=== PATIENT | male | born 1965 | race Caucasian/White ===

== ENCOUNTER → 2016-11-26 | Outpatient (CLI) | payer OTHER | LOC: RAD 10:20 | DX: M54.5 Low back pain (principal); M43.8X6 Other specified deforming dorsopathies, lumbar region; M47.816 Spondylosis without myelopathy or radiculopathy, lumbar region; M47.817 Spondylosis without myelopathy or radiculopathy, lumbosacral region | CPT/HCPCS: 72100 ==

== ENCOUNTER → 2016-12-17 | Outpatient (CLI) | payer OTHER | LOC: EMI 07:20 | DX: M54.5 Low back pain (principal); M51.36 Other intervertebral disc degeneration, lumbar region; M48.56XA Collapsed vertebra, not elsewhere classified, lumbar region, initial encounter for fracture | CPT/HCPCS: 72148 ==

== ENCOUNTER → 2017-02-21 | Outpatient (CLI) | payer OTHER ==
[2017-02-21 14:10] LABS: HEMOGLOBIN 12.6 gm/dl (14.0-17.5); RED BLOOD COUNT 4.32 M/UL (4.20-5.50); WHITE BLOOD COUNT 6.1 K/UL (4.5-11.0)
== END ==
LOC: LAB 13:43
PROVIDERS: Anesthesiology Addiction Medicine
DX: M43.06 Spondylolysis, lumbar region (principal); M54.5 Low back pain
CPT/HCPCS: 36415; 85025; 86140

== ENCOUNTER → 2020-11-03 | Outpatient (CLI) | payer OTHER | LOC: CT 08:30 | DX: D69.6 Thrombocytopenia, unspecified (principal); J98.11 Atelectasis; R91.8 Other nonspecific abnormal finding of lung field; R16.1 Splenomegaly, not elsewhere classified | CPT/HCPCS: 74160; Q9967 ==

== ENCOUNTER → 2022-03-14 | Outpatient (CLI) | payer OTHER | LOC: KOH-I 10:18 | DX: S83.512A Sprain of anterior cruciate ligament of left knee, initial encounter (principal); M71.21 Synovial cyst of popliteal space [Baker], right knee; S83.281A Other tear of lateral meniscus, current injury, right knee, initial encounter; S83.241A Other tear of medial meniscus, current injury, right knee, initial encounter; M17.12 Unilateral primary osteoarthritis, left knee | CPT/HCPCS: 73721 ==